=== PATIENT | female | born 1945 | race Caucasian/White ===

== ENCOUNTER 2018-06-19 19:20 | Inpatient (IN) ==
[2018-06-19] MEDS ORDERED: NS 1,000 ML IV ONE ×3 (20:01→21:49)
[2018-06-19] MEDS ORDERED: ZOFRAN IV ONE (20:03)
[2018-06-19 21:21] LABS: BASO# 0.02 X1000 (0.0-0.2); BASO% 0.2 % (0.0-0.8); HEMATOCRIT 37.7 % (37.0-47.0); HEMOGLOBIN 12.6 g/dL (12.0-16.0); IMM GRAN# 0.06 X1000 (0.0-0.04); IMM GRAN% 0.7 % (0.0-0.5); LYMPH# 0.77 X1000 (1.2-3.4); LYMPH% 8.8 % (20.5-51.1); MCH 29.8 PG (27-31); MCHC 33.4 g/dL (33-37); MCV 89.1 FL (81-99); MONO# 0.93 X1000 (0.11-0.59); MONO% 10.7 % (1.7-9.3); MPV 11.7 FL (7.4-10.4); NEUT# 6.95 X1000 (1.4-6.5); NEUT% 79.6 % (42.2-75.2); PLT 182 X1000 (130-400); RBC 4.23 XMIL (4.2-5.4); RDW 13.6 % (11.5-14.5); WBC 8.73 X1000 (4.8-10.8)
[2018-06-19 21:42] LABS: ALB/GLOB RATIO 0.9; ALBUMIN 3.6 g/dL (3.5-5.0); CALCIUM 9.1 mg/dL (8.8-10.2); MAGNESIUM 2.4 mg/dL (1.5-2.7); POTASSIUM 2.8 mmol/L (3.5-5.1); TOTAL BILIRUBIN 0.9 mg/dL (0.20-1.00); TOTAL PROTEIN 7.5 g/dL (6.3-8.3)
[2018-06-19] MEDS ORDERED: KLOR-CON PO ONE (21:47)
[2018-06-19] MEDS ORDERED: DILAUDID IV ONE (21:51)
[2018-06-19] MEDS ORDERED: NS + KCL 40 MEQ 1,000 ML IV SCH (22:00)
[2018-06-20 00:30] LABS: URINE SOURCE CLEAN CATCH
[2018-06-20 01:06] LABS: BILIRUBIN URINE NEGATIVE (NEGATIVE); BLOOD URINE NEGATIVE (NEGATIVE); CLARITY CLEAR (CLEAR); COLOR RED; GLUCOSE URINE 100 mg/dL (NEGATIVE); KETONE URINE NEGATIVE (NEGATIVE); LEUKOCYTES URINE TRACE (NEGATIVE); NITRITE URINE POSITIVE (NEGATIVE); PROTEIN URINE 30 mg/dL (NEGATIVE); SP GRAVITY URINE <= 1.005
[2018-06-20 01:34] LABS: URINE BACTERIA NEGATIVE /HFP; URINE CAST NONE SEEN /LPF; URINE CRYSTAL NONE SEEN /HPF; URINE EPITHELIAL CELLS <10 /HPF (<10); URINE RBC <10 /HPF (<10); URINE WBC <10 /HPF (<10); URINE YEAST NONE SEEN /HPF
--- NOTE | 2018-06-20 02:49 | HISTORY AND PHYSICAL ---
PRIMARY CARE PHYSICIAN: Dr. Sharma. CHIEF COMPLAINT: Epigastric pain and nausea, vomiting x5 days. HISTORY OF PRESENTING ISSUE: A 72-year-old elderly female with a history of hypertension, hyperlipidemia, who had presented to emergency department with 5 days history of persistent epigastric pain. She states that she was having nausea, vomiting during this time. She states that the symptoms were worsening. Subsequently, she had come to the emergency department. In the ED, she was evaluated. She seemed to be dehydrated and she was noted to have an elevated lipase. It was suspected possibly she had pancreatitis. Subsequently, she will need admission for further management. At the time of my examination, patient denied any headache, fever, chills, chest pain, hemoptysis, melena, but complained of epigastric pain and nausea, vomiting. PAST MEDICAL HISTORY: Includes hypertension, hyperlipidemia. PAST SURGICAL HISTORY: Hysterectomy. ALLERGIES: Codeine, levofloxacin, morphine. CURRENT MEDICATIONS: Current medications include metoprolol 100 mg p.o. daily, hydrochlorothiazide 12.5 mg p.o. daily, gemfibrozil 600 mg p.o. b.i.d., pantoprazole 40 mg p.o. daily, Xanax 0.5 mg p.o. b.i.d., pravastatin 80 mg p.o. at bedtime, aspirin 81 mg p.o. daily. SOCIAL HISTORY: She denies any history of smoking, alcohol or illicit drug use. FAMILY HISTORY: No history of coronary artery disease. REVIEW OF SYSTEMS: Fourteen point review of systems as listed in HPI. Other systems negative. PHYSICAL EXAMINATION: GENERAL: Cooperative, friendly female. She is resting more comfortably now. VITAL SIGNS: Temperature 98.1 degrees, pulse 62, respirations 20, blood pressure 132/47. HEENT: Atraumatic, normocephalic. Extraocular movements intact. PERRLA. NECK: Supple. CHEST: Clear to auscultation. CARDIOVASCULAR: Regular rate and rhythm. ABDOMEN: Soft, diffuse tenderness. EXTREMITIES: No edema. NEUROLOGIC: She is awake, alert, oriented x3. GENITOURINARY: No bladder distention. SKIN: Warm. LABORATORIES AND STUDIES: WBCs 8.73, hemoglobin 12.6, hematocrit 37.7, platelets 182,000. Sodium 136, potassium 2.8, chloride 94, CO2 of 26, BUN is 41, creatinine is 2.0, glucose 112. Amylase is 219. ASSESSMENT: A 72-year-old elderly female with a history of hypertension, hyperlipidemia, who presented to the emergency department with 5 days history of persistent epigastric pain associated with nausea, vomiting. She was evaluated in the emergency department. She had laboratory findings consistent with pancreatitis. Subsequently, she will need admission for further management. 1. Acute pancreatitis. 2. Hypokalemia. 3. Acute kidney injury. 4. Hypertension. 5. Hyperlipidemia. PLAN: 1. We will admit patient to medical floor with telemetry. 2. We will keep patient NPO. Continue supportive treatment with IV fluids, antiemetics, pain control. 3. We will replace her potassium. 4. Monitor her renal function closely. 5. We will restart her home medications once she is improved. 6. Put patient on DVT prophylaxis with SCDs. 7. We will continue to follow, and reassess and make further recommendation based on patient's clinical course. cc: Raleigh Robb MD
[2018-06-20] MEDS ORDERED: ZOFRAN IV PRN (06:35)
--- NOTE | 2018-06-20 08:28 | Diag Imaging Result Doc PS360 ---
EXAM: US ABDOMEN-COMPLETE 06/20/2018 HISTORY: abdominal pain TECHNIQUE: Abdominal ultrasound COMMENT: The pancreatic head and body are normal in appearance. The visualized portions of the aorta and inferior vena cava are within normal limits. The liver is unremarkable. There is antegrade flow in the portal vein. The liver is slightly hyperechoic. The gallbladder is clear, however there is tenderness over the gallbladder. There is no evidence of biliary dilatation the common bile duct measuring less than 4 mm. The kidneys are without evidence of hydronephrosis or mass. The spleen is at the upper limits of normal measuring 13 cm in greatest dimension. There are calcified granulomata in the spleen. There are no abnormal fluid collections. IMPRESSION: Positive sonographic Be sign without morphologic abnormality. Hepatic steatosis versus cirrhosis with borderline splenomegaly. Electronically signed by Darvin Zarate 06/20/2018 8:25 AM
[2018-06-20] MEDS: XANAX PO SCH ×2 (08:54→23:45)
[2018-06-20] MEDS: LOPID PO SCH ×2 (08:54→23:45)
[2018-06-20] MEDS: TOPROL XL PO SCH (08:54)
[2018-06-20] MEDS: NS 1,000 ML IV SCH ×2 (08:54→17:08)
[2018-06-20] MEDS: PRAVACHOL PO SCH (08:54)
--- NOTE | 2018-06-20 14:33 | PROGRESS NOTE ---
DATE: 06/20/2018 Ms. Rods pain is a little less. It is mainly epigastric. She has remained afebrile. She does not have any nausea at this time. Temperature 98.6, pulse 56, respirations 20, blood pressure 144/50. Pupils are equal and round.Lungs: Clear in all lung pena. Cardiovascular: Regular rhythm, rate without murmur or S3. Abdomen: Soft. Skin: Warm and dry. LAB: Reviewed from yesterday. White count 8730, hematocrit 37, platelet count 182,000. Chemistries 136 potassium 2.8, chloride 94, bicarb 26, BUN 41, creatinine 2.0, lipase was 219, amylase 140 so will repeat electrolytes again in the morning. She had an abdominal ultrasound done this morning. Positive Be sign without morphologic abnormality hepatic steatosis versus cirrhosis with borderline splenomegaly. Orders reviewed. Getting aspirin 81 mg at bedtime, Xanax 0.5 mg b.i.d., on Lopid 600 mg b.i.d., metoprolol succinate 100 mg p.o. daily, she is getting normal saline 125 mL an hour, Pravachol 80 mg daily and got some potassium supplement yesterday 60 mEq. Review her history patient Dr. Sharma 72-year-old female history hypertension, hyperlipidemia, she presented to the emergency room after 5-day history of persistent epigastric pain, nausea and vomiting. States the symptoms worsening. In the emergency department she appeared dehydrated, had an elevated lipase. Past medical history is really hypertension, hyperlipidemia so felt she had acute pancreatitis. Ultrasound does not show any gallstone but does suggest steatosis so will continue NPO for now and recheck her electrolytes and renal function in the morning as well as potassium and magnesium. cc: Sivakumar Flood MD
[2018-06-20] MEDS: ASPIRIN EC PO SCH (23:45)
[2018-06-21] MEDS: NS 1,000 ML IV SCH (00:25)
[2018-06-21 07:15] LABS: BASO# 0.03 X1000 (0.0-0.2); BASO% 0.3 % (0.0-0.8); EOS# 0.04 X1000 (0.0-0.7); EOS% 0.4 % (0.0-10.0); HEMATOCRIT 31.9 % (37.0-47.0); HEMOGLOBIN 10.3 g/dL (12.0-16.0); IMM GRAN# 0.12 X1000 (0.0-0.04); IMM GRAN% 1.2 % (0.0-0.5); LYMPH# 0.99 X1000 (1.2-3.4); LYMPH% 9.9 % (20.5-51.1); MCH 29.9 PG (27-31); MCHC 32.3 g/dL (33-37); MCV 92.5 FL (81-99); MONO# 1.02 X1000 (0.11-0.59); MONO% 10.2 % (1.7-9.3); MPV 11.5 FL (7.4-10.4); NEUT# 7.76 X1000 (1.4-6.5); PLT 169 X1000 (130-400); RBC 3.45 XMIL (4.2-5.4); WBC 9.96 X1000 (4.8-10.8)
[2018-06-21 07:28] LABS: ALB/GLOB RATIO 1.2; ALBUMIN 3.1 g/dL (3.5-5.0); CALCIUM 8.5 mg/dL (8.8-10.2); CREATININE 1.4 mg/dL (0.5-0.9); MAGNESIUM 1.9 mg/dL (1.5-2.7); POTASSIUM 3.5 mmol/L (3.5-5.1); TOTAL BILIRUBIN 1.21 mg/dL (0.20-1.00); TOTAL PROTEIN 5.6 g/dL (6.3-8.3)
--- NOTE | 2018-06-21 11:00 | PROGRESS NOTE ---
DATE: 06/21/2018 SUBJECTIVE: Ms. Arce is feeling a little bit better, but we are going to try her on some liquids and see how we do. Epigastric pain is less. OBJECTIVE: Vital signs: Temp 99.1 degrees, pulse 57, respirations 20, blood pressure 141/51. Pupils: Are equal and round. Lungs: Clear in all lung pena. Cardiovascular: Regular rhythm and rate without murmur or S3. Abdomen: Soft. Skin: Warm and dry. Urine output 5200 mL. LAB REVIEWED FROM YESTERDAY: Hematocrit 31, hemoglobin 10.3. We will check a CBC again in the morning. Sodium 142, potassium 3.5, chloride 107. Creatinine down it went down from 2.0 to 1.4 and lipase is down to 169. Abdominal ultrasound: Positive Be sign without morphologic abnormality, hepatic steatosis versus cirrhosis, borderline splenomegaly. PLAN: So, we will advance her to a liquid diet. It looks like clinically pancreatitis is improved. She is on a proton-pump inhibitor. Continue current medications. She is on Pravachol 80 mg a day, Lopid 600 mg b.i.d., Xanax 0.5 mg b.i.d., aspirin 81 mg a day, and metoprolol 100 mg q. day. cc: Sivakumar Flood MD
[2018-06-21] MEDS: XANAX PO SCH ×2 (11:15→22:31)
[2018-06-21] MEDS: TOPROL XL PO SCH (11:15)
[2018-06-21] MEDS: LOPID PO SCH ×2 (11:15→22:32)
[2018-06-21] MEDS: PRAVACHOL PO SCH (11:15)
[2018-06-21] MEDS: ASPIRIN EC PO SCH (22:31)
[2018-06-22 07:03] LABS: BASO# 0.07 X1000 (0.0-0.2); BASO% 0.8 % (0.0-0.8); EOS# 0.14 X1000 (0.0-0.7); EOS% 1.5 % (0.0-10.0); HEMATOCRIT 35.4 % (37.0-47.0); HEMOGLOBIN 11.5 g/dL (12.0-16.0); IMM GRAN# 0.36 X1000 (0.0-0.04); IMM GRAN% 3.9 % (0.0-0.5); LYMPH# 1.43 X1000 (1.2-3.4); LYMPH% 15.5 % (20.5-51.1); MCH 30.3 PG (27-31); MCHC 32.5 g/dL (33-37); MCV 93.4 FL (81-99); MONO# 0.78 X1000 (0.11-0.59); MONO% 8.4 % (1.7-9.3); MPV 11.3 FL (7.4-10.4); NEUT# 6.46 X1000 (1.4-6.5); NEUT% 69.9 % (42.2-75.2); PLT 217 X1000 (130-400); RBC 3.79 XMIL (4.2-5.4); RDW 14.1 % (11.5-14.5); WBC 9.24 X1000 (4.8-10.8)
[2018-06-22 07:23] LABS: CALCIUM 9.1 mg/dL (8.8-10.2); CREATININE 1.4 mg/dL (0.5-0.9); MAGNESIUM 1.9 mg/dL (1.5-2.7); POTASSIUM 3.6 mmol/L (3.5-5.1)
[2018-06-22] MEDS: TOPROL XL PO SCH (10:19)
[2018-06-22] MEDS: PRAVACHOL PO SCH (10:19)
[2018-06-22] MEDS: LOPID PO SCH ×2 (10:20→22:07)
[2018-06-22] MEDS: XANAX PO SCH ×2 (10:20→22:07)
--- NOTE | 2018-06-22 11:44 | PROGRESS NOTE ---
DATE: 06/22/2018 SUBJECTIVE: This morning, Ms. Arce refers to be doing a little better. No more abdominal pain and no nauseation. She has been tolerating her full liquid diet. OBJECTIVE: Vital signs: Blood pressure is 141/57, pulse is 59, respiration is 20, temperature 99.0. General: Ms. Arce is a 72-year-old lady. She is in bed in no distress. HEENT: [place] and moist. Anicteric and acyanotic. Neck: Supple. Chest: Good air entry bilaterally, no crepitations, no rhonchi. Cardiovascular: Regular rate and rhythm, no murmurs, no rubs, no gallops. GI: Abdomen is soft, minimally tender in the right side, especially the right upper quadrant, but no masses felt. Bowel sounds are present. Extremities: No pedal edema. DIRECTOR OF CAREER RESOURCES: The patient is awake, alert, oriented, and no focal neurological deficit. LABORATORY DATA: WBC is 9.24, hemoglobin is 11.5, platelet count of 217. Chemistries also reviewed. Sodium 139, potassium 3.6, chloride 106, bicarb 20. Creatinine is down to 1.4. The patient does have chronic kidney disease. ASSESSMENT: 1. Abdominal pain with nauseation secondary to acute pancreatitis. Etiology of the pancreatitis apparently unclear. The patient denies any alcohol use. Gallbladder ultrasound does not show any stones. However, there is sonographic Be sign positive. We will do a HIDA scan to rule out any gallbladder dyskinesia and go from there. Will also do EMILI and IgG4 to rule out any alternative cause. This could also potentially be medication induced. I see hydrochlorothiazide as one of her home medications. This has been withheld. 2. Acute on chronic renal failure. Creatinine is on downward trend. 3. Hypertriglyceridemia. Level not very high Patient was on gemfibrozil at home. this has been started. 4. Hepatic steatosis versus cirrhosis with splenomegaly on ultrasound. The patient does not seem to show any other evidence of cirrhosis. I think it is probably hepatic steatosis. The patient's enteric functions also seem to be fairly stable. I have advised her to follow up with GI and also repeat an ultrasound in about 6 months to follow up on these image findings. 5. Hypertension is controlled. In general, Ms. Arce is doing fairly okay. She has been started on a full liquid diet. She is tolerating it. Will do a HIDA scan to rule out gallbladder dyskinesia tomorrow. If that is negative, will be able to discharge her and she will follow up with GI for other outpatient workup. cc: James Pereira MD MTDD
[2018-06-22] MEDS: ASPIRIN EC PO SCH (22:07)
[2018-06-23 07:17] LABS: BASO% 1.1 % (0.0-0.8); EOS# 0.18 X1000 (0.0-0.7); EOS% 2.1 % (0.0-10.0); HEMATOCRIT 33.9 % (37.0-47.0); IMM GRAN# 0.47 X1000 (0.0-0.04); IMM GRAN% 5.4 % (0.0-0.5); LYMPH# 1.65 X1000 (1.2-3.4); MCH 30.1 PG (27-31); MCHC 32.4 g/dL (33-37); MCV 92.6 FL (81-99); MONO# 0.74 X1000 (0.11-0.59); MONO% 8.5 % (1.7-9.3); MPV 11.1 FL (7.4-10.4); NEUT# 5.56 X1000 (1.4-6.5); NEUT% 63.9 % (42.2-75.2); PLT 250 X1000 (130-400); RBC 3.66 XMIL (4.2-5.4); RDW 14.2 % (11.5-14.5)
[2018-06-23 07:22] LABS: INR 1.11; PROTIME 15.2 Seconds (11.0-16.0)
[2018-06-23 07:29] LABS: ALBUMIN 3.2 g/dL (3.5-5.0); C REACTIVE PROT QUANT 53.35 mg/L (0.00-5.00); CALCIUM 9.1 mg/dL (8.8-10.2); CREATININE 1.2 mg/dL (0.5-0.9); POTASSIUM 3.8 mmol/L (3.5-5.1); TOTAL BILIRUBIN 0.63 mg/dL (0.20-1.00); TOTAL PROTEIN 6.3 g/dL (6.3-8.3)
[2018-06-23 07:56] LABS: BANDS 10 % (0-1); EOS 2 % (1-10); LYMPHS 22 % (21-51); MONO 6 % (1-9); SEGS 60 % (42-75)
[2018-06-23 07:57] LABS: HYPOCHROM 1+
--- NOTE | 2018-06-23 13:17 | PROGRESS NOTE ---
DATE: 06/23/2018 SUBJECTIVE: This morning, Ms. Arce refers to be feeling a lot better. No abdominal pain and no nausea. She was able to tolerate her diet yesterday. OBJECTIVE: Vital signs: Blood pressure is 152/58, pulse is 59, respirations 17, temperature is 98.7, patient was saturating 97% on room air. General: Ms. Arce is a 72-year-old, female. She was sitting up in a chair, was not in any cardiopulmonary distress. HEENT: Mucosa was pink and moist. Anicteric. Acyanotic. Neck: Supple. Chest: Clear to auscultation. No crepitations. No rhonchi. Cardiovascular: Regular rate and rhythm. No murmurs, no rubs, no gallops. Abdomen: Soft, minimally tender in the right upper quadrant, but no rebound tenderness. Bowel sounds are present. Extremities: No pedal edema. SALESFORCE SPECIALIST: Patient is awake, alert, oriented. There is no focal neurological deficit. LABORATORY DATA: WBC is 8.70, hemoglobin is 11.0, platelet count of 250. Chemistry is also reviewed. Creatinine is down to 1.2. AST went up to 61, ALT is also 52. The patient's C- reactive protein is 53.325. ASSESSMENT: 1. Abdominal pain with nausea on presentation, secondary to acute pancreatitis. Improved. 2. Acute pancreatitis of unclear etiology. Patient denies any alcohol use. Gallbladder ultrasound was unremarkable. However, there was a positive Be's sign. The patient is pending a HIDA scan to rule out any gallbladder dyskinesia. Hydrochlorothiazide was one of her home medications. This has been withheld since it has potential to also cause pancreatitis. 3. Acute on chronic renal failure. Creatinine continues to be downward trend. We will continue with the gentle hydration. 4. Hypertriglyceridemia. The patient is on gemfibrozil from home. 5. Hepatic steatosis with splenomegaly on ultrasound noted. 6. Hypertension. Controlled. So, in general, Ms. Arce seems to be doing slightly better today in terms of her pain. We are still pending the HIDA scan and go from there. cc: James Pereira MD
[2018-06-23] MEDS: TOPROL XL PO SCH (15:52)
[2018-06-23] MEDS: XANAX PO SCH ×2 (15:52→21:24)
[2018-06-23] MEDS: PRAVACHOL PO SCH ×2 (15:52→21:24)
[2018-06-23] MEDS: LOPID PO SCH ×2 (15:57→21:24)
--- NOTE | 2018-06-23 16:47 | Diag Imaging Result Doc PS360 ---
EXAM: HIDA SCAN W/ EJECTION FRACTION INDICATION: r/o gallbladder dyskinesis TECHNIQUE: 5.8 mCi of technetium 99 Choletec was administered intravenously and images were obtained in usual fashion. COMPARISON: None. FINDINGS: There is normal immediate hepatocellular uptake after administration of the radiotracer. Activity is seen in the gallbladder beginning at about 10 minutes post administration. Activity is seen in small bowel beginning at about six minutes post administration. A ounces of liquid fatty meal was then administered orally. The calculated gallbladder ejection fraction is 30%. IMPRESSION: Slightly depressed gallbladder ejection fraction suggesting possible hypokinesis. Electronically signed by Ko Buckley 06/23/2018 4:44 PM
[2018-06-23] MEDS: ASPIRIN EC PO SCH (21:24)
--- NOTE | 2018-06-24 02:36 | GENERAL SURGERY CONSULTATION ---
DATE: 06/23/2018 HISTORY OF PRESENT ILLNESS: This is a 72-year-old female who was admitted with abdominal pain on 06/20/2018. She was found to have acute pancreatitis and has been treated medically for this with bowel rest and IV fluids. She has undergone workup. She does not really have any risk factors for pancreatitis. She has no history of alcoholism or alcohol use for that matter. No family history of pancreatitis. She had an abdominal ultrasound that showed tenderness over the gallbladder, but it did not show any stones. There is no biliary dilation and the bile duct measured 4 mm. The pancreatic head and body were normal in appearance. She had an ejection fraction on 06/23/2018 that showed an ejection fraction 60%, but showed normal filling of the gallbladder. She has not had a CT scan. Her liver function tests remain mildly elevated, bilirubin is normal and her lipase has been downtrending. She had a positive urinalysis as well. PAST MEDICAL HISTORY: Hypertension and hyperlipidemia. SURGICAL HISTORY: Hysterectomy. MEDICATIONS: Were reviewed. SOCIAL HISTORY: No tobacco, alcohol or drugs. FAMILY HISTORY: Negative for cancer and pancreatitis. REVIEW OF SYSTEMS: Ten point negative. PHYSICAL EXAMINATION: Vital Signs: Temperature is 98.7, pulse has been 50s-70s, blood pressure 117/63, oxygen saturation is 100%. General: She is alert. She is eating some clear liquids for dinner. HEENT: No scleral icterus. Neck: No cervical masses. Cardiovascular: Normal rate. Pulmonary: No increased work of breathing. Abdomen: Soft, nontender, nondistended. No peritonitis. Integument: Warm and dry without jaundice. Psychiatric: Appropriate affect. Neurologic: No gross deficits. Lymphatic: No cervical or axillary adenopathy. LABORATORY DATA: White count 8, hematocrit 33, bilirubin is 0.63, AST and ALT are 61 and 52, alkaline phosphatase mildly elevated at 134. Lipase was 169 on 06/21/2018. Urinalysis had nitrates. IMAGING: Is noted in her HPI. ASSESSMENT AND PLAN: The patient is a 72-year-old female with pancreatitis. She has no gallstones, no history of alcoholism. I will obtain a CT scan to rule out a pancreatic neoplasm as it is somewhat concerning her creatinine is down to 1.2. Her glucoses have been normal which is reassuring. Hopefully she will resolve this, but given the acute pancreatitis I would advise against cholecystectomy at this juncture, I think her depressed ejection fraction is appropriate given the acute inflammatory state that she has. We will continue to follow her along closely. cc: Markel Jaramillo MD
[2018-06-24 07:23] VITALS: BP 152/54
[2018-06-24 07:36] LABS: ALBUMIN 3.1 g/dL (3.5-5.0); CALCIUM 8.9 mg/dL (8.8-10.2); POTASSIUM 3.6 mmol/L (3.5-5.1); TOTAL BILIRUBIN 0.5 mg/dL (0.20-1.00); TOTAL PROTEIN 6.1 g/dL (6.3-8.3)
[2018-06-24] MEDS: LOPID PO SCH (09:19)
[2018-06-24] MEDS: TOPROL XL PO SCH (09:20)
[2018-06-24] MEDS: PRAVACHOL PO SCH (09:20)
[2018-06-24] MEDS: XANAX PO SCH (09:20)
--- NOTE | 2018-06-24 10:20 | Diag Imaging Result Doc PS360 ---
EXAM: CT ABD/PELVIS W/IV CONT ONLY 06/24/2018 HISTORY: r/o pancreatic mass TECHNIQUE: This exam was performed using automated exposure control, adjustment of mA or kV according to patient size, and/or use of iterative reconstruction technique. COMMENT: There are no previous studies available for comparison. There are bibasilar opacities in the costophrenic sulci including the inferior portion of the lingula as well as small pleural effusions bilaterally. There are some tiny pulmonary nodules present in the inferior right middle lobe and adjacent to the major fissure in the lower lobe, the latter on image six. These are nonspecific findings. There is some patchy air trapping in the lung bases. The aorta contains atherosclerotic calcifications. There is no evidence of aneurysm. The mesenteric and renal arteries are patent. There are granulomata in the spleen. The liver is unremarkable in appearance. The kidneys are without evidence of hydronephrosis or mass. There is some decreased contrast opacification of the upper and lower poles of the left kidney. This is apparent on both the arterial and venous phases and may be result of mild pyelonephritis. There is no evidence of pancreatic mass or biliary obstruction. There is no evidence of significant adenopathy or bowel obstruction. There is a fair amount of retained fluid in the stomach. Pelvis: There has been previous appendectomy. There is diverticulosis throughout the sigmoid colon without evidence of active diverticulitis. There is a moderately large amount of retained stool in the rectum. The urinary bladder is not distended. There has been previous hysterectomy. There are no abnormal fluid collections. There is no evidence of significant adenopathy. There is vacuum joint phenomenon in the symphysis pubis and degenerative disc change in the lumbar spine. No evidence of acute bony abnormality is present. IMPRESSION: Questionable left pyelonephritis. Otherwise no evidence of acute disease in the abdomen or pelvis. Bilateral pleural effusions and basilar atelectasis. Nonspecific pulmonary nodules as described. Electronically signed by Darvin Zarate 06/24/2018 10:18 AM
[2018-06-24] MEDS ORDERED: PRILOSEC PO ONE (12:06)
[2018-06-24 12:13] LABS: HEPATITIS PROFILE ACUTE SEE COMMENTS
--- NOTE | 2018-06-25 09:20 | DISCHARGE SUMMARY ---
ADMISSION DATE: 06/20/2018 DISCHARGE DATE: 06/24/2018 DISPOSITION: Disposition is home. FOLLOW-UP: 1. Dr. Sharma. 2. Dr. Freeman. 3. Dr. Jaramillo. 4. Dr. Monroe. CONSULTATION DURING THIS ADMISSION: Surgery was consulted; patient was seen by Dr. Jaramillo. INVASIVE PROCEDURES DONE DURING THIS ADMISSION: None. IMAGING STUDIES OF SIGNIFICANCE: 1. Ultrasound of the abdomen showed positive sonographic Be sign without morphological abnormality. There is hepatic steatosis versus cirrhosis with borderline splenomegaly. 2. A HIDA scan did show slightly depressed gallbladder ejection fraction suggesting possible gallbladder hypokinesis. 3. A CT scan of the abdomen and pelvis shows questionable left pyelonephritis, but no acute intra- abdominal pathology. ADMISSION DIAGNOSES: 1. Acute pancreatitis. 2. Hypokalemia. 3. Acute kidney injury. 4. Dyslipidemia. 5. Hypertension. DIAGNOSES AT THE TIME OF DISCHARGE: 1. Abdominal pain with nausea on presentation, secondary to acute pancreatitis. 2. Acute pancreatitis of unclear etiology. The patient denies any alcohol use. We presume it is a combination of either medication induced (hydrochlorothiazide) or possible gallstone-induced pancreatitis despite the imaging studies did not reveal any gallstones. 3. Gallbladder hypokinesis noted on HIDA scan. 4. Acute on chronic renal failure. Creatinine is down to 1.0. 5. History of dyslipidemia with hypertriglyceridemia. The patient is on gemfibrozil. 6. Hepatic steatosis with splenomegaly on ultrasound concerning also for cirrhosis. Patient is advised to follow up with Gastroenterology on an outpatient basis for a full workup. 7. Hypertension is controlled. DISCHARGE MEDICATIONS: 1. Aspirin 81 mg daily. 2. Metoprolol 100 mg daily. 3. Multivitamins. 4. Pravastatin 80 mg daily. 5. Alprazolam 0.5 b.i.d. 6. Gemfibrozil 600 b.i.d. 7. Omeprazole 20 mg daily. PRESENTING COMPLAINT: Epigastric pain, nausea. HISTORY OF PRESENTING COMPLAINT: Ms. Arce is a 72-year-old female with history of hypertension and dyslipidemia, who came to the emergency department because of epigastric pain, was evaluated extensively and was found to have elevated pancreatic enzymes. Ultrasound of the abdomen was done which showed sonographic positive sign for Be, however there was no gallstone. Patient was subsequently admitted for acute pancreatitis management. HOSPITAL COURSE: Ms. Arce was admitted to the medical floor, was initially kept n.p.o. and was adequately hydrated and pain managed. During the hospital course multiple studies were done including autoimmune studies for the pancreatitis, which was negative. Hepatitis panel was also negative. The patient's liver enzymes were minimally elevated. Ultrasound of the abdomen did not show any gallstones. However, there was evidence of Be positive sign. A HIDA scan was done which showed hypokinesis. Surgery was consulted because of concern of gallstone -induced pancreatitis. The patient was seen by Dr. Jaramillo. During the hospital course, Ms. Arce continued to improve. Abdominal pain subsided and she tolerated her diet. However, Dr. Jaramillo had a concern to rule out possibility of pancreatic mass as a cause of the pancreatitis, so a CT scan of the abdomen and pelvis was done which did not show any pancreatic mass. Ms. Arce has been known to have recurrent episode of UTIs in the past. However, currently she does not have any symptoms of UTI. The CT scan did make mention of questionable left side pyelonephritis, but she is completely asymptomatic. So she has been advised, however, to follow up with Urology as an outpatient. Ms. Arce herself did say that she used to follow with Dr. Saldana and there was a plan for urological evaluation. However, this has not been done. I did tell her that she can also follow up here with Dr. Monroe or Dr. Patel since Dr. Saldana is no more in the community. All the discharge instructions have been discussed with her. Specifically, we have discontinued her hydrochlorothiazide. We are concerned that could precipitate pancreatitis, and we have asked that she follow up with Dr. Freeman for a comprehensive study on the possible cirrhosis with splenomegaly, and also for the elevated liver enzymes. Ms. Arce will also follow up with Dr. Jaramillo for outpatient management of the gallbladder hypokinesis. All the discharge instructions have been discussed with her. TIME SPENT FOR DISCHARGE: 36 minutes. cc: MD Markel Pickett MD William E. Hughes, MD Raphael K. Quansah, MD Manish Arora, MD MTDD
== END 2018-06-24 14:38 | disposition home or self-care (01) | DRG 439 ==
LOC: ED 19:20 → 4N 06-20 04:48 → SUATTDRO 06-20 04:48
PROVIDERS: ATTEND Internal Medicine
CPT/HCPCS: 74177; 76700; 78227; 80048; 80053; 80074; 81001; 82150; 82784; 82787; 82977; 83605; 83690; 83735; 84478; 85025; 85610; 86038; 86039; 86140; 87088; 96365; 96366; 96375; 99284; A9270; A9537; J1170; J2405; J7030; Q9967